=== PATIENT | male | born 1940 | race Caucasian/White ===

== ENCOUNTER → 2018-02-22 | Outpatient (CLI) | payer MEDICARE, OTHER ==
--- NOTE | 2018-02-22 13:41 | RAD ---
EXAM DESCRIPTION: Pelvis CLINICAL HISTORY: 77 years Male, PAIN IN LT HIP COMPARISON: None. TECHNIQUE: AP radiograph of the pelvis was performed. FINDINGS: The pelvic ring appears grossly intact on this single AP radiograph. No acute fracture or dislocation. Bilateral sacroiliac joints appear normal. Mild bilateral hip osteoarthritis. The visualized lumbo-sacral spine demonstrates moderate degenerative changes. IMPRESSION: Single AP radiograph of the pelvis demonstrates grossly intact pelvic ring. Mild bilateral hip osteoarthritis. Electronically signed by: Radha Michaels MD 02/22/2018 1:40 PM CDT
--- NOTE | 2018-02-22 13:41 | RAD ---
EXAM DESCRIPTION: Knee,Left Complete CLINICAL HISTORY: 77 years Male, PAIN IN LT KNEE TECHNIQUE: 4 views of the left knee were performed. COMPARISON: None available. FINDINGS: The visualized bones appear well mineralized. No acute fracture or dislocation. Mild tricompartmental osteoarthritis is noted. There is small suprapatellar joint effusion. The soft tissues appear grossly unremarkable. IMPRESSION: Mild tricompartmental osteoarthritis with small suprapatellar joint effusion. Electronically signed by: Radha Michaels MD 02/22/2018 1:39 PM CDT
== END ==
LOC: RAD 09:21
PROVIDERS: ATTEND Orthopaedic Surgery
DX: M17.12 Unilateral primary osteoarthritis, left knee (principal); M16.0 Bilateral primary osteoarthritis of hip; M25.562 Pain in left knee; M25.552 Pain in left hip

== ENCOUNTER → 2018-04-26 | Outpatient (CLI) | payer MEDICARE, OTHER | LOC: LAB.O 11:31 | PROVIDERS: ATTEND Orthopaedic Surgery | DX: Z01.818 Encounter for other preprocedural examination (principal) ==

== ENCOUNTER → 2018-04-27 | Outpatient (CLI) | payer MEDICARE, OTHER ==
--- NOTE | 2018-04-28 09:18 | RAD ---
EXAM DESCRIPTION: Chest,2 Views CLINICAL HISTORY: PRE-SURGERY COMPARISON: None TECHNIQUE: PA/lateral FINDINGS: There is no acute appearing cardiac or pulmonary abnormality. Heart size is normal with normal pulmonary vascularity. No pleural effusion or pneumothorax. Lungs are clear with no consolidating infiltrate. Lateral view shows intact sternum and spurring in the T-spine. IMPRESSION: No acute process is identified in the chest. Electronically signed by: Heriberto Mendez MD 04/28/2018 9:16 AM CDT
== END ==
LOC: LAB.O 10:55
PROVIDERS: ATTEND Family Medicine
DX: Z01.818 Encounter for other preprocedural examination (principal); I10 Essential (primary) hypertension; N13.8 Other obstructive and reflux uropathy

== ENCOUNTER 2018-05-18 05:34 | Inpatient (IN) | payer MEDICARE, OTHER ==
[2018-05-18] MEDS ORDERED: SODIUM CHL 0.9% 100ML MINI-BAG 100 ML IVPB ONE (05:50)
[2018-05-18] MEDS ORDERED: LACTATED RINGERS 1,000 ML ONE (05:50)
[2018-05-18] MEDS ORDERED: TRANEXAMIC ACID 1,000 MG/10 ML VIAL ONE ×2 (05:50→06:14)
[2018-05-18] MEDS ORDERED: VANCOMYCIN HCL INJ 1,000 MG VIAL IVPB ONE ×2 (05:51→17:52)
[2018-05-18] MEDS ORDERED: SODIUM CHLORIDE 0.9% 250ML 250 ML ONE ×2 (05:51→17:51)
[2018-05-18] MEDS ORDERED: SODIUM CHLORIDE 0.9% 100ML 100 ML IVPB ONE ×3 (05:51→20:38)
[2018-05-18] MEDS ORDERED: ceFAZolin SODIUM 1 GM VIAL ONE ×4 (05:51→20:39)
[2018-05-18] MEDS ORDERED: MIDAZOLAM INJ 2 MG/2 ML VIAL ONE (06:21)
[2018-05-18] MEDS ORDERED: ACETAMINOPHEN IV 1000MG 100 ML ONE (06:21)
[2018-05-18] MEDS ORDERED: fentaNYL CITRATE INJ 50 MCG/ML AMP ONE (06:22)
[2018-05-18] MEDS ORDERED: MORPHINE SULF *EPIDURAL* 1 MG/ML VIAL ONE (06:22)
[2018-05-18] MEDS ORDERED: ZOLPIDEM TARTRATE 5 MG TAB PO PRN (06:54)
[2018-05-18] MEDS ORDERED: ACETAMINOPHEN 500 MG TAB PO PRN (06:54)
[2018-05-18] MEDS ORDERED: MORPHINE SULFATE INJ 10 MG/ML VIAL IV PRN (06:54)
[2018-05-18] MEDS ORDERED: BISACODYL SUPPOSITORY 10 MG PR PRN (06:54)
[2018-05-18] MEDS ORDERED: traMADol HCL 50 MG TAB PO PRN (06:54)
[2018-05-18] MEDS ORDERED: ACETAMINOPHEN 325 MG TAB PO PRN (06:54)
[2018-05-18] MEDS ORDERED: NALOXONE HCL INJ 0.4 MG/ML VIAL IV PRN (06:54)
[2018-05-18] MEDS ORDERED: BENZOCAINE-MENTH LOZ (CEPACOL) 1 EA LOZ MT PRN (06:54)
[2018-05-18] MEDS ORDERED: MAGNESIUM HYDROXIDE 30 ML UD PO PRN (06:54)
[2018-05-18] MEDS ORDERED: TEMAZEPAM 15 MG CAP PO PRN (06:54)
[2018-05-18] MEDS ORDERED: TRANEXAMIC ACID INJ 1,000 MG in SODIUM CHLORIDE 0.9% 100ML 100 ML IVPB ONE (06:54)
[2018-05-18] MEDS ORDERED: MORPHINE SULFATE INJ 10 MG/ML VIAL IM PRN (06:54)
[2018-05-18] MEDS ORDERED: PROMETHAZINE HCL INJ 25 MG in SODIUM CHLORIDE 0.9% 50ML 50 ML IVPB PRN (06:54)
[2018-05-18] MEDS ORDERED: ALUMINUM & MAGNESIUM HYDROXIDE 30 ML UD PO PRN (06:54)
[2018-05-18] MEDS ORDERED: SODIUM CHLORIDE 0.9% (FLUSH) 10 ML SYG IV PRN (06:54)
[2018-05-18] MEDS ORDERED: PROMETHAZINE HCL INJ 12.5 MG in SODIUM CHLORIDE 0.9% 50ML 50 ML IVPB PRN (06:54)
[2018-05-18] MEDS ORDERED: LIDOCAINE 1% 10 ML VIAL INJ ONE (07:00)
[2018-05-18] MEDS ORDERED: DEXAMETHASONE INJ 10 MG/ML VIAL ONE (07:00)
[2018-05-18] MEDS ORDERED: ePHEDrine SULF 50 MG/ML ONE (07:00)
[2018-05-18] MEDS ORDERED: METOCLOPRAMIDE HCL INJ 10 MG/2 ML VIAL ONE (07:00)
[2018-05-18] MEDS ORDERED: PROPOFOL 200 MG/20 ML VIAL IV ONE (07:00)
[2018-05-18] MEDS ORDERED: PHENYLEPHRINE INJ 1ML 10 MG/ML VIAL ONE (07:00)
[2018-05-18] MEDS ORDERED: MORPHINE PCA 1 MG/ML 100 ML BAG IVPB SCH (07:00)
[2018-05-18] MEDS ORDERED: raNITIdine HCL INJ 25 MG/ML VIAL ONE (07:00)
[2018-05-18] MEDS: ceFAZolin SODIUM 1 GM VIAL ONE ×2 (07:38→08:45)
[2018-05-18] MEDS: VANCOMYCIN HCL INJ 1,000 MG VIAL IVPB ONE ×2 (07:38→08:45)
[2018-05-18] MEDS: BUPIVACAINE 0.5% 30 ML VIAL INJ ONE ×2 (07:38→08:42)
[2018-05-18] MEDS: BUPIVACAINE LIPOSOME 13.3 MG/ML VIAL INJ ONE ×3 (07:39→08:43)
[2018-05-18] MEDS ORDERED: BUPIVACAINE LIPOSOME 13.3 MG/ML VIAL INJ ONE (07:47)
[2018-05-18] MEDS ORDERED: SODIUM CHLORIDE 0.9% 50 ML VIAL ONE (08:56)
[2018-05-18] MEDS ORDERED: ELECTROLYTE-A 1,000 ML IVS ONE (09:01)
--- NOTE | 2018-05-18 10:45 | RAD ---
EXAM DESCRIPTION: Left knee, 2 radiographs CLINICAL HISTORY: Total knee arthroplasty FINDINGS/ IMPRESSION: Postoperative left total knee arthroplasty without acute bony abnormality. Expected air within the soft tissues and fluid in the joint. Overlying bandaging. No radiopaque foreign body Electronically signed by: Jonh Willis MD 05/18/2018 10:44 AM CDT
[2018-05-18] MEDS: ONDANSETRON INJ 4 MG/2 ML VIAL IV PRN ×2 (11:51→17:14)
[2018-05-18] MEDS: DEX 5% W/NACL 0.45% 1000ML 1,000 ML IVS PRN (12:50)
[2018-05-18] MEDS: IV SET AND CAP CHANGE INJ INJ SCH (12:50)
[2018-05-18] MEDS: MAGNESIUM OXIDE 400 MG TAB PO SCH (12:51)
[2018-05-18] MEDS: ceFAZolin SODIUM 2 GM in SODIUM CHLORIDE 0.9% 100ML 100 ML IVPB SCH (16:31)
[2018-05-18] MEDS: CELECOXIB 100 MG CAP PO SCH (17:16)
[2018-05-18] MEDS ORDERED: PROMETHAZINE HCL INJ 25 MG/ML VIAL ONE (18:15)
[2018-05-18] MEDS ORDERED: SODIUM CHLORIDE 0.9% 50ML 50 ML ONE (18:15)
[2018-05-18] MEDS: VANCOMYCIN HCL INJ 1,000 MG in SODIUM CHLORIDE 0.9% 250ML 250 ML IVPB SCH (18:34)
[2018-05-18] MEDS: PANTOPRAZOLE SODIUM IV 40 MG VIAL IV SCH (18:46)
[2018-05-18] MEDS ORDERED: diphenhydrAMINE HCL 50 MG/ML VIAL IV PRN (19:07)
[2018-05-18] MEDS ORDERED: ENOXAPARIN SODIUM 30 MG/0.3 ML SYG SUBCU ONE (20:38)
[2018-05-18] MEDS: ATORVASTATIN 20 MG TAB PO SCH (20:53)
[2018-05-18] MEDS: DOCUSATE CALCIUM 240 MG CAP PO SCH (20:53)
[2018-05-18] MEDS: ENOXAPARIN SODIUM 30 MG/0.3 ML SYG SUBCU SCH (23:09)
[2018-05-19] MEDS: ceFAZolin SODIUM 2 GM in SODIUM CHLORIDE 0.9% 100ML 100 ML IVPB SCH ×2 (00:27→07:51)
[2018-05-19] MEDS ORDERED: VANCOMYCIN HCL INJ 1,000 MG VIAL IVPB ONE (01:59)
[2018-05-19] MEDS ORDERED: SODIUM CHLORIDE 0.9% 250ML 250 ML ONE (01:59)
[2018-05-19] MEDS: VANCOMYCIN HCL INJ 1,000 MG in SODIUM CHLORIDE 0.9% 250ML 250 ML IVPB SCH (05:54)
[2018-05-19] MEDS: HYDROcodone 5MG/APAP 325MG 1 EA TAB PO PRN ×4 (05:54→20:28)
[2018-05-19] MEDS ORDERED: ceFAZolin SODIUM 1 GM VIAL ONE (07:23)
[2018-05-19] MEDS ORDERED: SODIUM CHLORIDE 0.9% 100ML 100 ML IVPB ONE (07:23)
[2018-05-19] MEDS: CELECOXIB 100 MG CAP PO SCH ×2 (07:49→16:54)
--- NOTE | 2018-05-19 08:06 | PN ---
DATE: 05/18/18 POSTOPERATIVE CHECK SUBJECTIVE: Mr. Goldman is doing well and has no pain. OBJECTIVE: Afebrile. Vital signs stable. Dressing is clean, dry and intact. ASSESSMENT: Status post total knee arthroplasty. PLAN: The plan at this point is for him to begin weightbearing as tolerated on postoperative day 1. #[id number] MTDD
--- NOTE | 2018-05-19 08:21 | OP ---
DATE OF PROCEDURE: 05/18/18 PREOPERATIVE DIAGNOSIS: 1. Osteoarthritis of the knee. POSTOPERATIVE DIAGNOSIS: 1. Osteoarthritis of the knee. PROCEDURE: 1. Total knee arthroplasty. SURGEON: Jean Carlos Rivera MD. JAVASCRIPT ENGINEER: Cory Leong CST, SA-C. ANESTHESIA: General anesthesia. COMPLICATIONS: None. FINDINGS: Osteoarthritis of the knee. INDICATION: Mr. Goldman has a history of pain in the knee for which he has failed conservative measures. After discussing the risks, benefits and alternatives to operative therapy, the patient has given informed consent for total knee arthroplasty. PROCEDURE: The patient was brought to the Operating Room and placed in supine position. General anesthesia was induced and the patient's leg was sterilely prepped and draped. Following prepping and draping, the distal femur was exposed and using an intramedullary guide, the distal femoral cut was made. The appropriate sized cutting block was measured, pinned into place, and the anterior, posterior, and chamfer cuts were made. The ACL was transected and the tibia was subluxed. Both the medial and lateral menisci were removed. An intramedullary guide was used to make the proximal tibial cut. The appropriate sized base plate was placed and a trial polyethylene was placed. The trial femur was placed, the knee was reduced, and the knee was taken through a range of motion. The knee was stable in anterior, posterior, varus and valgus stress. The patella tracked anatomically without evidence of subluxation or dislocation. After trialing, the trial components were removed and the bony surfaces were thoroughly irrigated with saline. Following irrigation, the surfaces were dried and the final components were cemented into place. The excess cement was removed and the remaining cement was allowed to cure. The knee was again taken through a range of motion to confirm stability. The wound was then irrigated with saline and closure was performed using PDS to approximate the arthrotomy followed by closure of the subcutaneous tissues with a combination of running and interrupted Monocryl sutures. Sterile dressing was placed. The patient was awoken from anesthesia and taken to Recovery. POSTOPERATIVE PLAN: The patient will be weight-bearing as tolerated on postoperative day 1. COMPONENTS: [employer] Triath[employer] knee, size 5 femur, size 5 tibia, 9 mm insert. #[id number] [facility]
[2018-05-19] MEDS: HYDROCHLOROTHIAZIDE PO SCH ×2 (09:00→19:00)
[2018-05-19] MEDS: IRBESARTAN PO SCH ×2 (09:00→19:00)
[2018-05-19] MEDS: MAGNESIUM OXIDE 400 MG TAB PO SCH (09:26)
[2018-05-19] MEDS: TAMSULOSIN 0.4 MG CAP PO SCH (09:26)
[2018-05-19] MEDS: FINASTERIDE 5 MG TAB PO SCH (09:26)
--- NOTE | 2018-05-19 10:37 | PN ---
DATE: 05/19/18 SUBJECTIVE: Mr. Goldman is doing well and is up with physical therapy right now. His pain is well controlled. OBJECTIVE: Afebrile. Vital signs stable. Dressing is clean, dry and intact. ASSESSMENT: Status post total knee arthroplasty. PLAN: He will continue weightbearing as tolerated and increase CPM as tolerated. #[id number] MTDD
[2018-05-19] MEDS: CYCLOBENZAPRINE HCL 10 MG TAB PO PRN ×2 (10:59→20:29)
[2018-05-19] MEDS: ENOXAPARIN SODIUM 30 MG/0.3 ML SYG SUBCU SCH ×2 (11:02→20:29)
[2018-05-19] MEDS: PANTOPRAZOLE SODIUM IV 40 MG VIAL IV SCH (17:38)
[2018-05-19] MEDS: DEX 5% W/NACL 0.45% 1000ML 1,000 ML IVS PRN (20:17)
[2018-05-19] MEDS: ATORVASTATIN 20 MG TAB PO SCH (20:28)
[2018-05-19] MEDS: DOCUSATE CALCIUM 240 MG CAP PO SCH (20:28)
--- NOTE | 2018-05-19 23:18 | CONS ---
SUPERVISING PHYSICIAN: Dieter Wu M.D. CHIEF COMPLAINT: Left knee pain. HISTORY OF PRESENT ILLNESS: This is a 77 year-old male patient who has complained of left knee pain due to osteoarthritis. He has failed conservative measures and has requested Dr. Jean Carlos Rivera, orthopedic surgeon, for operative intervention to help control pain. The patient had a left total knee arthroplasty today per Dr. Jean Carlos Rivera, orthopedic surgeon. There were no complications intraoperatively. I am seeing the patient postoperatively on the Medical/Surgery floor in consultation. PAST MEDICAL HISTORY: 1. Osteoarthritis, 2. Gastroesophageal reflux disease. 3. Hyperlipidemia. 4. Benign prostatic hypertrophy. 5. Hypertension. PAST SURGICAL HISTORY: 1. Back surgery. 2. Eye surgery. OUTPATIENT MEDICATIONS: 1. Aspirin. 2. Celebrex. 3. Pantoprazole. 4. Tramadol. 5. Atorvastatin. 6. Finasteride. 7. Irbesartan/hydrochlorothiazide. 8. Tamsulosin. ALLERGIES: KNOWN DRUG ALLERGIES. SOCIAL HISTORY: He quit smoking over 30 years ago. He drinks 1 to 2 beers daily. Denies any illicit drug use. He is . He has 2 children. He lives in [place]. REVIEW OF SYSTEMS: Negative except as per History of Present Illness. PHYSICAL EXAMINATION: VITAL SIGNS: He is afebrile, heart rate 85, blood pressure 131/77, respiratory rate 16, O2 sat 92% on room air. GENERAL: This is a 77 year-old male patient who is lying in his hospital bed. He looks to be in mild distress due to pain. HEENT: Normocephalic and atraumatic. Pupils are equal and reactive. Oropharynx is clear. NECK: Supple without mass. RESPIRATORY: Essentially clear to auscultation bilaterally. CHEST: There is equal rise and fall of the chest with inspiration and expiration. HEART: Regular rate and rhythm. GASTROINTESTINAL: Abdomen is soft, nondistended, non-tender. Bowel sounds are positive. EXTREMITIES: There is an Iceman to his left knee that is also in a CPM machine. His bilateral pedal pulses are palpable at +2. SKIN: Somewhat cool but dry. It is pale. NEUROLOGIC: He is awake, alert and oriented times three. LABORATORY: There are no labs or films to review at this time. IMPRESSION: 1. Osteoarthritis of the left knee status post left total knee arthroplasty per Dr. Jean Carlos Rivera, orthopedic surgeon. Postoperative day #0. 2. Gastroesophageal reflux disease. 3. Hyperlipidemia. 4. Benign prostatic hypertrophy. 5. Hypertension. PLAN: We will continue present supportive care. Orthopedic issues will be per Dr. Jean Carlos Rivera, orthopedic surgeon. He will begin his physical therapy tomorrow for strengthening and conditioning. I have restarted his home medications. I have encouraged good pulmonary hygiene. We will continue to monitor the patient closely and follow as needed. #[id number] [facility]
[2018-05-20] MEDS: HYDROcodone 5MG/APAP 325MG 1 EA TAB PO PRN ×4 (05:58→23:07)
[2018-05-20] MEDS: CELECOXIB 100 MG CAP PO SCH ×2 (07:59→17:30)
[2018-05-20] MEDS: MAGNESIUM OXIDE 400 MG TAB PO SCH (08:39)
[2018-05-20] MEDS: TAMSULOSIN 0.4 MG CAP PO SCH (08:39)
[2018-05-20] MEDS: SODIUM CHLORIDE 0.9% (FLUSH) 10 ML SYG IV SCH ×2 (08:40→20:56)
[2018-05-20] MEDS: ENOXAPARIN SODIUM 30 MG/0.3 ML SYG SUBCU SCH ×2 (08:41→20:56)
[2018-05-20] MEDS: FINASTERIDE 5 MG TAB PO SCH (08:44)
--- NOTE | 2018-05-20 08:45 | PN ---
DATE: 05/20/18 SUBJECTIVE: Mr. Goldman is doing well and his pain is well controlled. OBJECTIVE: Afebrile. Vital signs stable. Wound is clean. There are no signs or symptoms of infection. ASSESSMENT: Status post total knee arthroplasty. PLAN: The plan at this point is to continue weightbearing as tolerated. [facility][id number] [facility]
[2018-05-20] MEDS: HYDROCHLOROTHIAZIDE PO SCH (08:48)
[2018-05-20] MEDS: IRBESARTAN PO SCH (08:48)
[2018-05-20] MEDS: SULFA/TRIMETH 800/160 (DS) TAB 1 EA TAB PO SCH ×2 (10:15→22:40)
--- NOTE | 2018-05-20 13:16 | PN ---
SUPERVISING PHYSICIAN: Ame Wu MD DATE: 05/19/18 SUBJECTIVE: The patient is sitting up in his chair in his room. He feels much better than he did yesterday. He did have some difficulty getting his pain under control overnight, but is much better now. He has had his Kim catheter out for about 7 hours and I have cautioned him that if he does not void in the next 30 to 40 minutes, we will have to re-insert it and we will have to start bladder training over tomorrow. He understands. Otherwise, he denies any shortness of breath, nausea, vomiting, diarrhea, constipation or chest pain. OBJECTIVE: VITAL SIGNS: Temperature 98.8. Pulse 85. Blood pressure 115/71. Respiratory rate 20. O2 saturation 90% on room air. RESPIRATORY: Essentially clear to auscultation bilaterally, slightly diminished at the bases. CARDIAC: Regular rate and rhythm. GASTROINTESTINAL: Abdomen is soft, nondistended, nontender. Bowel sounds are positive. EXTREMITIES: He has a dressing to his left knee that is dry and intact. Bilateral pedal pulses are palpable at +2. NEUROLOGIC: Awake, alert and oriented times three. LABORATORY: Hemoglobin 11.4, hematocrit 34.4. All other labs and films have been reviewed via the EMR. ASSESSMENT: 1. Osteoarthritis of the left knee status post left total knee arthroplasty per Dr. Jean Carlos Rivera, orthopedic surgeon. Postoperative day #1. 2. Gastroesophageal reflux disease. 3. Hyperlipidemia. 4. Benign prostatic hypertrophy. 5. Hypertension, stable. PLAN: We will continue present supportive care. Orthopedic issues will be per Dr. Jean Carlos Rivera, orthopedic surgeon. He will continue with his physical therapy for strengthening and conditioning. I have encouraged good pulmonary hygiene. If he does not void within the next 30 minutes or so, we will need to replace his Kim catheter and we will start bladder training in the morning. We will continue to monitor the patient closely and follow as needed. [facility][id number] [facility]
--- NOTE | 2018-05-20 13:24 | PN ---
SUPERVISING PHYSICIAN: Ame Wu MD DATE: 05/20/18 SUBJECTIVE: The patient is sitting up in his chair. His Kim catheter had to be re-inserted last night and I explained that he would have bladder training this afternoon. We also discussed that there are concerns for an early urinary tract infection and I treated it with Bactrim. He agreed with that as he does have prostate problems. He denies any nausea, vomiting, diarrhea, constipation , shortness of breath or chest pain. OBJECTIVE: VITAL SIGNS: Afebrile. Pulse 91. Blood pressure 160/89. O2 saturation 95% on room air. RESPIRATORY: Essentially clear to auscultation bilaterally. CARDIAC: Regular rate and rhythm. GASTROINTESTINAL: Abdomen is soft, nondistended, nontender. Bowel sounds are positive. EXTREMITIES: He has a dressing to his left knee that is dry and intact. Bilateral pedal pulses are palpable at +2. NEUROLOGIC: Awake, alert and oriented times three. LABORATORY: Urinalysis shows trace urine leukocyte esterase, 10 to 20 urine WBCs and 2+ urine bacteria. Urine culture pending. All other labs and films have been reviewed via the EMR. ASSESSMENT: 1. Osteoarthritis of the left knee status post left total knee arthroplasty per Dr. Jean Carlos Rivera, orthopedic surgeon. Postoperative day #2. 2. Urinary tract infection, presently on Bactrim. 3. Gastroesophageal reflux disease. 4. Hyperlipidemia. 5. Benign prostatic hypertrophy. 6. Hypertension, stable. PLAN: We will continue present supportive care. Orthopedic issues will be per Dr. Jean Carlos Rivera, orthopedic surgeon. He will continue with his physical therapy for strengthening and conditioning. His discharge planning is for him to go [facility] as an outpatient. He will be discharged Thursday either after his morning physical therapy or if it is early enough, he will be discharged afternoon physical therapy. I have started Bactrim DS twice a day for the urinary tract infection. We will continue to monitor that culture until sensitivities become available. Otherwise, we will follow closely and treat as needed. #[id number] [facility]
[2018-05-20] MEDS: PANTOPRAZOLE SODIUM IV 40 MG VIAL IV SCH (17:31)
[2018-05-20] MEDS: DOCUSATE CALCIUM 240 MG CAP PO SCH (20:56)
[2018-05-20] MEDS: ATORVASTATIN 20 MG TAB PO SCH (20:56)
[2018-05-20] MEDS: CYCLOBENZAPRINE HCL 10 MG TAB PO PRN (20:57)
[2018-05-21] MEDS: IV SET AND CAP CHANGE INJ INJ SCH (07:00)
[2018-05-21] MEDS: CELECOXIB 100 MG CAP PO SCH (07:48)
--- NOTE | 2018-05-21 07:56 | PN ---
DATE: 05/21/18 SUBJECTIVE: Mr. Goldman is currently doing well and his pain is well controlled with p.o. medicine. OBJECTIVE: Afebrile. Vital signs stable. Wound is clean. There are no signs or symptoms of infection. ASSESSMENT: Status post total knee arthroplasty. PLAN: The plan at this point is for continued physical therapy and likely discharge today. #[id number] [facility]TDD
[2018-05-21] MEDS: ENOXAPARIN SODIUM 30 MG/0.3 ML SYG SUBCU SCH (08:32)
[2018-05-21] MEDS: IRBESARTAN PO SCH (08:32)
[2018-05-21] MEDS: MAGNESIUM OXIDE 400 MG TAB PO SCH (08:32)
[2018-05-21] MEDS: TAMSULOSIN 0.4 MG CAP PO SCH (08:32)
[2018-05-21] MEDS: HYDROCHLOROTHIAZIDE PO SCH (08:32)
[2018-05-21] MEDS: FINASTERIDE 5 MG TAB PO SCH (09:32)
[2018-05-21] MEDS: SODIUM CHLORIDE 0.9% (FLUSH) 10 ML SYG IV SCH (09:32)
[2018-05-21] MEDS: SULFA/TRIMETH 800/160 (DS) TAB 1 EA TAB PO SCH (10:02)
[2018-05-21 13:44] VITALS: BP 132/89; TEMP 98.6; O2SAT 95
--- NOTE | 2018-05-21 14:29 | PN ---
SUPERVISING PHYSICIAN: Ame Wu MD DATE: 05/21/18 SUBJECTIVE: The patient is doing well. He continues to progress with physical therapy. His Kim remains in place. We are going to discontinue that today. He has had good control of his pain. He has been afebrile. OBJECTIVE: VITAL SIGNS: Temperature 97.9. Pulse 74. Blood pressure 158/77. Respirations 18. Saturation 95% on room air. GENERAL: The patient appears to be in no acute distress, resting comfortably and alert. CHEST: Lungs clear to auscultation. HEART: Regular rate and rhythm. ABDOMEN: Soft, nontender. Positive bowel sounds. EXTREMITIES: No cyanosis, clubbing or edema. On the left knee, a dressing is in place which is clean and dry with strong distal pulses. Capillary refill is brisk. NEUROLOGIC: Alert and oriented times three. LABORATORY: No additional laboratory studies are available. MICROBIOLOGY: Urine cultures pending. RADIOLOGY: No studies for review. ASSESSMENT: 1. Osteoarthritis of the left knee status post elective left total knee arthroplasty per Dr. Jean Carlos Rivera, orthopedic surgeon, postoperative day #3. 2. Urinary tract infection, presently on Bactrim. 3. Urinary retention requiring continued Kim catheter, working to discontinue prior to going home. 4. Gastroesophageal reflux disease, stable. 5. Hyperlipidemia, chronic. 6. Benign prostatic hypertrophy, contributing probably to #2. 7. Hypertension, stable. PLAN: We will continue physical therapy efforts. In regards to his Kim catheter, we are working to do bladder training and remove today. Should he be okay, certainly will no longer need any followup, but should he not be able to void, certainly we will need to replace the Kim and he will need to followup with urology. We will continue to monitor culture results. He will remain on Bactrim at discharge for total treatment course of 10 days. Anticipate discharge later today or tomorrow. Until then, we will continue to monitor the patient closely and treat as needed. #[id number] [facility]
[2018-05-21] MEDS ORDERED: MAGNESIUM HYDROXIDE 30 ML UD PO ONE (21:00)
[2018-05-21] MEDS ORDERED: BISACODYL SUPPOSITORY 10 MG PR ONE (21:00)
--- NOTE | 2018-05-22 17:53 | DS ---
SUPERVISING PHYSICIAN: Ame Wu MD ADMISSION DIAGNOSES: 1. Osteoarthritis of the left knee status post elective left total knee arthroplasty per Dr. Jean Carlos Rivera, orthopedic surgeon. 2. Gastroesophageal reflux disease. 3. Hyperlipidemia. 4. Benign prostatic hypertrophy. 5. Hypertension. DISCHARGE DIAGNOSES: 1. Osteoarthritis of the left knee status post elective left total knee arthroplasty per Dr. Jean Carlos Rivera, orthopedic surgeon. 2. Urinary tract infection, presently on Bactrim. 3. Urinary retention requiring continued Kim catheter, working to discontinue prior to going home. 4. Gastroesophageal reflux disease, stable. 5. Hyperlipidemia, chronic. 6. Benign prostatic hypertrophy, contributing probably to #2. 7. Hypertension, stable. REASON FOR HOSPITALIZATION: Mr. Goldman is a 77 year-old male patient that has ongoing arthritic knee pains in the left knee. He failed conservative treatment measures and due to ongoing pain requested operative intervention effectively to help with pain control with a total knee arthroplasty. The patient was admitted on 05/18/18 for elective total knee arthroplasty, left knee. He had no intraoperative complications and followed postoperatively and through admission. He was in stable condition. LABORATORY: Postoperative hemoglobin 11.4, hematocrit 34.4. Urinalysis: urine cath specimen showed leukoesterase trace, urine RBC 1 to 3, WBC 10 to 20, epithelials 1 to 3 and bacteria was 2+. MICROBIOLOGY: Urine culture pending at discharge. RADIOLOGY: No additional studies. CONSULTATION: Hospital services. Please see Angelic Dunlap's note for full details. PROCEDURE: Elective left total knee arthroplasty performed by Dr. Jean Carlos Rivera. Please see his operative note for full details. HOSPITAL COURSE: Mr. Goldman was admitted on 05/18/18 for elective total knee arthroplasty, left knee, and had no intraoperative complications and followed postoperatively. He progressed well with his physical therapy. He did have initial issues with his Kim catheter that was removed and was having some urinary retention requiring replacement of Kim for an additional 24 hours and prior to discharge did bladder training and was without any symptoms prior to discharge and was urinating without any complications. He did note that urinalysis on placement of the Kim catheter showed questionable cystitis and he was started on treatment for that with antibiotics with Bactrim DS every 12 hours. On the date of discharge, 05/21/18, the patient was progressing well with physical therapy and well enough to be discharged and continue with outpatient management which was to be through [facility]. PLAN: Mr. Goldman was discharged on 05/21/18 to have clinical followup with Dr. Rivera as scheduled. Instructions included wound management as per Dr. Rivera's orthopedic operative wound management. He is to shower, no tub bath. Activities as per physical therapy, to walk with a walker as instructed. Continue with physical therapy through outpatient services at [facility]. Discharge diet: Regular diet as tolerated. Discharge Medications: 1. Flexeril 5 mg 3 times a day as needed p.r.n. #20 for muscle spasms. 2. Xarelto 10 mg daily, #8 for total of 8 days. 3. Bactrim DS, 1 tablet twice a day, #16, no refills. All other medications prior to hospitalization will continue as is. Disposition: The patient was discharged to care of family and to continue with physical therapy through [facility]. Condition on discharge was stable and improved. #[id number] [facility]
== END 2018-05-21 16:05 | disposition home or self-care (01) | DRG 470 ==
LOC: AMB 05:34 → MS 10:25
PROVIDERS: ADMIT Orthopaedic Surgery; ATTEND Nurse Practitioner Family
PROC: 0SRD0J9 Replacement of Left Knee Joint with Synthetic Substitute, Cemented, Open Approach (ICD-10-PCS; principal; 2018-05-18 06:59)
DX: M17.12 Unilateral primary osteoarthritis, left knee (principal); N39.0 Urinary tract infection, site not specified; K21.9 Gastro-esophageal reflux disease without esophagitis; E78.5 Hyperlipidemia, unspecified; N40.0 Benign prostatic hyperplasia without lower urinary tract symptoms; I10 Essential (primary) hypertension; Z79.82 Long term (current) use of aspirin; Z87.891 Personal history of nicotine dependence